=== PATIENT | female | born 1995 | race Caucasian/White ===

== ENCOUNTER 2016-08-27 02:45 | Observation (INO) | payer OTHER ==
[~2016-08-27 02:45] MED LIST: FERR325E14; IBUP-2213 PO; PREN-385 PO
--- NOTE | 2016-08-27 07:48 | NUR ---
PATIENT HAS BEEN SCREENED AND CATEGORIZED LOW NUTRITION RISK. PATIENT WILL BE SEEN WITHIN 7 DAYS OF ADMISSION. 09/02/[address]
== END 2016-08-27 04:45 | disposition home or self-care (01) ==
LOC: MLD 02:45
PROVIDERS: ADMIT Obstetrics & Gynecology; ATTEND Obstetrics & Gynecology
DX: O26.899 Other specified pregnancy related conditions, unspecified trimester (principal); R10.2 Pelvic and perineal pain; Z3A.00 Weeks of gestation of pregnancy not specified
CPT/HCPCS: G0378

== ENCOUNTER 2016-12-05 22:14 | Inpatient (IN) | payer OTHER ==
[~2016-12-05] VITALS: Ht 149.9 cm; Wt 55.8 kg
--- NOTE | 2016-12-05 01:45 | NUR ---
IV FLUID OF NS AT 60 ML PER HOUR INFUSING WELL
[2016-12-05 22:26] VITALS: BP 114/60
--- NOTE | 2016-12-05 22:41 | NUR ---
PT TAKEN TO BED 4
--- NOTE | 2016-12-05 22:46 | NUR ---
PATIENT PRESENTS TO ED WITH C/O FEVER, FOR 2 DAYS, CHILLS, LOWER ABD PAIN,BODYACHES POST = 9.17.17. SHE TOOK IBUPROFEN AT 2000HOURS. PT DENIES N/V/D; SKIN IS PINK/WARM/DRY; AAOX4 WITH EVEN AND STEADY GAIT; LUNGS CLEAR BL; HR EVEN AND REGULAR; PT DENIES ANY CP, SOB, OR COUGH AT THIS TIME; PATIENT STATES PAIN OF 7/10 AT THIS TIME; VSS; PATIENT POSITIONED FOR COMFORT; HOB ELEVATED; BEDRAILS UP X2; BED DOWN. ER MD MADE AWARE OF PT STATUS.
--- NOTE | 2016-12-05 22:47 | NUR ---
Dr. Dewitt evaluating patient at bedside.
--- NOTE | 2016-12-05 22:59 | NUR ---
PT REFUSING TO GIVE A UA. SHE STS " I WILL TALK TO THE ER MD ABOUT IT FRIST."
--- NOTE | 2016-12-05 22:59 | NUR ---
Note emma in EDM - 12/05/16 at 2300 by MEDRJJ PT REFUSING TO GIVE A UA. SHE STS " I WILL TALK TO THE ER ABOUT IT FRIST."
[2016-12-05 23:28] LABS: HEMATOCRIT 33.8 % (36-48); HEMOGLOBIN 11.4 g/dL (12.0-16.0); MEAN CORPUSCULAR HEMOGLOBIN 29 pg (27-31); MEAN CORPUSCULAR HGB CONC 34 g/dL (33-37); MEAN CORPUSCULAR VOLUME 86 fL (80-94); PLATELET COUNT (AUTO) 363 K/uL (140-450); RED BLOOD CELL COUNT(AUTO) 3.95 MIL/uL (4.20-5.40); RED CELL DISTRIBUTION WIDTH 11.6 % (11.6-13.7); WHITE BLOOD COUNT (AUTO) 12.8 K/uL (4.8-10.8)
[2016-12-05 23:37] LABS: ANION GAP 13.7 (8-16); CARBON DIOXIDE 21.9 mmol/L (21-32); CREATININE 0.8 mg/dL (0.6-1.3); POTASSIUM 3.6 mmol/L (3.5-5.1)
[2016-12-05 23:44] LABS: TOTAL BILIRUBIN 0.2 mg/dL (0.0-1.0)
[2016-12-05 23:50] LABS: LYMPHOCYTES % (MANUAL) 8 % (20-46); MONOCYTES % (MANUAL) 7 % (5-12)
[2016-12-06 00:06] LABS: APPEARANCE,URINE SL CLOUDY (CLEAR); BILIRUBIN,URINE NEGATIVE (NEGATIVE); BLOOD, URINE TRACE-L (NEGATIVE); COLOR,URINE YELLOW (YELLOW); LEUKOCYTE ESTERASE ,URINE 3+ (NEGATIVE); NITRITE, URINE NEGATIVE (NEGATIVE); UGLUCOSE NEGATIVE (NEGATIVE)
[2016-12-06 00:18] LABS: RBC,URINE 0-5 (RARE) /HPF (0-5); WBC,URINE TOO MANY TO COUNT /HPF (0-5)
[2016-12-06] MEDS ORDERED: GENTAMICIN 80 MG in DEXTROSE 5% 100 ML IV ONE (00:45)
[2016-12-06] MEDS ORDERED: CLINDAMYCIN 900 MG in DEXTROSE 5% 100 ML IV ONE (00:45)
[2016-12-06] MEDS: NACL 0.9% 1,000 ML IV SCH ×2 (00:59→17:40)
[2016-12-06] MEDS ORDERED: ONDANSETRON 4 MG/2 ML VIAL IM/IVP PRN (01:00)
[2016-12-06] MEDS ORDERED: MORPHINE SULFATE 2 MG/ML SYR IVP PRN (01:00)
[2016-12-06] MEDS ORDERED: HYDROcodone/APAP 7.5/325 MG 1 TAB PO PRN (01:00)
[2016-12-06] MEDS ORDERED: DOCUSATE SODIUM 100 MG GELCAP PO PRN (01:00)
[2016-12-06] MEDS ORDERED: GENTAMICIN 80 MG/2 ML VIAL ONE (01:11)
[2016-12-06] MEDS ORDERED: CLINDAMYCIN 900 MG/6 ML VIAL IV ONE (01:12)
--- NOTE | 2016-12-06 01:40 | NUR ---
Patient will be admitted to care of Dr Stafford. Admited to tele. Will go to room 116. Belongings list completed. Report to STEF Chun.
--- NOTE | 2016-12-06 01:45 | NUR ---
PT ARRIVED ON UNIT VIA GURNEY FROM ER, PT IS AAOX4, PT IS ON RA. PT HAS IV TO L HAND 20 G, INFUSING WELL, PATENT AND INTACT. SKIN IS INTACT, RESPIRATIONS ARE EVEN AND UNLABORED. BOWEL SOUNDS ARE PRESENT. INITIAL ASSESSMENT COMPLETED, PLAN OF CARE DISCUSSED DISCUSSED WITH PT, PT VERBALIZED UNDERSTANDING. ALL SAFETY PRECAUTIONS MET, CALL LIGHT WITHIN REACH, WILL CONTINUE TO MONITOR.
[2016-12-06 01:47] LABS: PROTHROMBIN TIME 11.5 secs (10.8-13.4)
[2016-12-06 01:49] LABS: CHOL/HDL RATIO 2.2 (1-4.5); FREE T4 (FREE THYROXINE) 1.19 ng/dL (0.76-1.46); MAGNESIUM 1.8 mg/dL (1.8-2.4); THYROID STIMULATING HORMONE 0.18 uIU/mL (0.34-3.74)
[2016-12-06 02:16] VITALS: BP 119/63
[2016-12-06] MEDS ORDERED: GENTAMICIN PER PHARMACY MC PRN (02:30)
[2016-12-06] MEDS ORDERED: KETOROLAC 15 MG/ML VIAL IVP PRN (03:35)
[2016-12-06] MEDS: CLINDAMYCIN 900 MG in DEXTROSE 5% 100 ML IV SCH ×3 (04:57→20:48)
[2016-12-06] MEDS ORDERED: GENTAMICIN 80 MG in DEXTROSE 5% 100 ML IV SCH (05:00)
[2016-12-06 06:18] LABS: BASOPHILS # (AUTO) 0.1 K/uL (0.00-0.22); BASOPHILS % (AUTO) 0.5 % (0.0-2.0); EOSINOPHILS # (AUTO) 0.1 K/uL (0-0.4); EOSINOPHILS % (AUTO) 0.9 % (0.0-4.0); HEMATOCRIT 35.1 % (36-48); LYMPHOCYTES # (AUTO) 0.9 K/uL (2.5-16.5); LYMPHOCYTES % (AUTO) 7.5 % (20.5-51.1); MEAN CORPUSCULAR HEMOGLOBIN 29 pg (27-31); MEAN CORPUSCULAR HGB CONC 34 g/dL (33-37); MEAN CORPUSCULAR VOLUME 84 fL (80-94); MONOCYTES # (AUTO) 0.9 K/uL (0.8-1.0); MONOCYTES % (AUTO) 7.4 % (1.7-9.3); NEUTROPHILS # (AUTO) 10.1 K/uL (1.8-7.7); NEUTROPHILS % (AUTO) 83.7 % (42.2-75.2); PLATELET COUNT (AUTO) 322 K/uL (140-450); RED BLOOD CELL COUNT(AUTO) 4.17 MIL/uL (4.20-5.40); RED CELL DISTRIBUTION WIDTH 11.7 % (11.6-13.7)
[2016-12-06 06:39] LABS: ANION GAP 12.7 (8-16); CARBON DIOXIDE 23.3 mmol/L (21-32); CREATININE 0.7 mg/dL (0.6-1.3)
[2016-12-06 07:29] LABS: WHITE BLOOD COUNT (AUTO) 12.1 K/uL (4.8-10.8)
--- NOTE | 2016-12-06 07:40 | NUR ---
endorsed plan of care to day nurse for continuity of care, pt in stable condition no s/s of distress noted.
--- NOTE | 2016-12-06 07:45 | NUR ---
RECEIVED REPORT FROM HOUSEKEEPING LEAD NURSE, PT IS A/OX4, AMBULATORY, IV IS ON THE LEFT HAND, PATIENT, INTACT, FLUSHING WELL, NO S/S OF RESPIRATORY DISTRESS OR DISCOMFORT NOTED, DISCUSSED PLAN OF CARE WITH PT, PT VERBALIZED UNDERSTANDING, SAFETY/FALL PRECAUTIONS ARE IN PLACE, CALL LIGHT WITHIN REACH, WILL CONTINUE TO MONITOR.
[2016-12-06 08:00] VITALS: BP 113/63
[2016-12-06] MEDS: GENTAMICIN 80 MG in DEXTROSE 5% 100 ML IV SCH ×2 (09:23→17:40)
[2016-12-06] MEDS: LACTOBACILLUS RHAMNOSUS GG 1 EACH CAP PO SCH (09:24)
--- NOTE | 2016-12-06 09:57 | NUR ---
PATIENT HAS BEEN SCREENED AND CATEGORIZED HIGH NUTRITION RISK. PATIENT WILL BE SEEN WITHIN 1-2 DAYS OF ADMISSION. 12/06/16-12/07/[address]
--- NOTE | 2016-12-06 10:35 | NUR ---
PROVIDED PATIENT WITH BOTTLES FOR BREAST MILK STORAGE FROM NURSERY.
--- NOTE | 2016-12-06 11:00 | NUR ---
PT IS RESTING IN BED, PATIENT'S BOYFRIEND IS AT BEDSIDE, CALL LIGHT WITHIN REACH.
[2016-12-06 12:00] VITALS: BP 118/70
[2016-12-06] MEDS: ACETAMINOPHEN 325 MG TAB PO PRN ×2 (12:22→20:53)
--- NOTE | 2016-12-06 12:22 | NUR ---
PATIENT'S TEMPERATURE IS 102.2 AT THIS TIME, WILL MEDICATE WITH TYLENOL FOR FEVER AND PROVIDE COOLING MEASURES.
--- NOTE | 2016-12-06 12:38 | NUR ---
12/06/16 RD INITIAL ASSESSMENT COMPLETED PLEASE REFER TO NUTRITION ASSESSMENT UNDER CARE ACTIVITY FOR ESTIMATED NUTRITIONAL NEEDS. 1. CONTINUE REGULAR DIET 2. RD TO FOLLOW-UP 3-5 DAYS, HIGH RISK ION SEGOVIA RD
--- NOTE | 2016-12-06 13:30 | NUR ---
RECHECK PATIENT'S TEMPERATURE, CURRENT TEMP. 98.8.
[2016-12-06 16:00] VITALS: BP 117/72
--- NOTE | 2016-12-06 18:00 | NUR ---
PT IS RESTING IN BED WATCHING TV, NO S/S OF RESPIRATORY DISTRESS OR DISCOMFORT NOTED, CALL LIGHT WITHIN REACH.
--- NOTE | 2016-12-06 19:31 | NUR ---
ENDORSED PT TO MANAGER EDUCATION NURSE FOR CONTINUITY OF CARE, PT STABLE AT THIS TIME.
--- NOTE | 2016-12-06 19:32 | NUR ---
RECEIVED REPORT FROM AM NURSE. PT IS AOX4, ABLE TO MAKE NEEDS KNOWN. WITH RESPIRATIONS CLEAR AND UNLABORED, NO COMPLAINTS OF PAIN AT THIS TIME. WITH A LEFT HAND 20 G, INTACT AND PATENT. NOTED WITH A SCAR NOTED. WILL CONTINUE TO MONITOR. REORIENTED PT TO THE UNIT, VERBALIZED UNDERSTANDING. WILL CONTINUE TO MONITOR FOR ANY CHANGES.
--- NOTE | 2016-12-06 19:51 | NUR ---
ENDORSED TO ANOTHER MACHINE OPERATOR CANE CUTTER FOR CONTINUITY OF CARE, IN STABLE CONDITION.
--- NOTE | 2016-12-06 19:52 | NUR ---
RECEIVED PATIENT REPORT AT BEDSIDE FROM NIGHT NURSE ASHIA. PATIENT IS AWAKE, ALERT, AND ORIENTED. NO SIGNS AND SYMPTOMS OF DISTRESS NOTED. NO COMPLAINTS OF PAIN AT THIS TIME. IV SITE NOTED ON LEFT, HAND. IVF INFUSING WELL. BED IN LOWEST POSITION, SIDE RAILS UP AND CALL LIGHT WITHIN REACH. WILL CONTINUE TO MONITOR.
[2016-12-07] VITALS: BP 108/65
[2016-12-07] MEDS: GENTAMICIN 80 MG in DEXTROSE 5% 100 ML IV SCH ×2 (00:52→09:07)
--- NOTE | 2016-12-07 00:59 | NUR ---
CHECKED ON PATIENT, PATIENT IS ASLEEP. NO SIGNS AND SYMPTOMS OF DISTRESS NOTED.
[2016-12-07 04:00] VITALS: BP 100/59
[2016-12-07] MEDS: CLINDAMYCIN 900 MG in DEXTROSE 5% 100 ML IV SCH ×2 (04:05→12:37)
--- NOTE | 2016-12-07 07:25 | NUR ---
PATIENT REPORT GIVEN AT BEDSIDE TO MORNING NURSE. PATIENT IS IN STABLE CONDITION.
--- NOTE | 2016-12-07 07:25 | NUR ---
RECEIVED REPORT FROM DIRECTOR OF FUNDRAISING, PT IS AAOX4, ON ROOM AIR, IV TO LEFT HAND 20G INFUSING WELL, SKIN INTACT, INITIAL ASSESSMENT COMPLETED, REVIEWED PLAN OF CARE WITH PT, PT VERBALIZED UNDERSTANDING, ALL SAFETY PRECAUTIONS MET, CALL LIGHT WITHIN REACH. WILL CONTINUE TO MONITOR.
[2016-12-07 08:00] VITALS: BP 109/68
[2016-12-07 08:18] LABS: T4 (THYROXINE) 9.2 ug/dL (4.5-12.0)
[2016-12-07] MEDS: LACTOBACILLUS RHAMNOSUS GG 1 EACH CAP PO SCH (09:08)
--- NOTE | 2016-12-07 09:13 | NUR ---
MEDICATION GIVEN, PT TOLERATED WELL, RESTING IN BED WATCHING TV. NO SIGN AND SYMPTOMS OF DISTRESS. ALL NEEDS MET. WILL CONTINUE TO MONITOR.
--- NOTE | 2016-12-07 11:25 | NUR ---
PT RESTING ON HER PHONE, NO DISTRESS NOTED, CALL LIGHT WITHIN REACH, WILL CONTINUE TO MONITOR.
[2016-12-07] MEDS: NACL 0.9% 1,000 ML IV SCH (12:42)
--- NOTE | 2016-12-07 12:50 | NUR ---
DUE MEDICATION GIVEN, PT RESTING, EATING LUNCH, NO DISTRESS NOTED, CALL LIGHT WITHIN REACH. WILL CONTINUE TO MONITOR.
[2016-12-07] MEDS ORDERED: LACT10CA1 PO (13:31)
[2016-12-07] MEDS ORDERED: AMOX-999 PO (13:31)
--- NOTE | 2016-12-07 13:40 | NUR ---
DISCUSSED DISCHARGE PLANNING WITH PT, PT VERBALIZED UNDERSTANDING.
--- NOTE | 2016-12-07 15:12 | NUR ---
ALL DISCHARGE PAPER WERE SIGNED. D/C EDUCATION GIVEN, PT STATED UNDERSTANDING. FOLLOW UP INFORMATION GIVEN, MEDICATION EDUCATION GIVEN, IV REMOVED, TIP INTACT, ALL PERSONAL BELONGING WITH PT. SIGNIFICANT OTHER ACCOMPANIED PT.
--- NOTE | 2016-12-07 15:17 | NUR ---
PT WALKED TO THE LOBBY, STABLE CONDITION WITH SIGNIFICANT OTHER.
== END 2016-12-07 15:18 | disposition home or self-care (01) | DRG 561 ==
LOC: MED 22:14 → MTU 12-06 01:16 → OBSVTOIN 12-06 19:30
PROVIDERS: ADMIT Family Medicine Sports Medicine; ATTEND Family Medicine Sports Medicine
DX: O85 Puerperal sepsis (principal); N17.0 Acute kidney failure with tubular necrosis; O99.285 Endocrine, nutritional and metabolic diseases complicating the puerperium; O90.81 Anemia of the puerperium; O99.53 Diseases of the respiratory system complicating the puerperium; J45.909 Unspecified asthma, uncomplicated; O90.89 Other complications of the puerperium, not elsewhere classified; E02 Subclinical iodine-deficiency hypothyroidism; O25.3 Malnutrition in the puerperium; Z68.24 Body mass index [BMI] 24.0-24.9, adult; Z79.899 Other long term (current) drug therapy
CPT/HCPCS: 96365; 99285; G0378; 36415; 76856; 80048; 80053; 80170; 81001; 82150; 83036; 83605; 83735; 84100; 84436; 84439; 84443; 84479; 85025; 85610; 85730; 87040; 87081; 87086; J0696; J1580; J3490; J7030; J7060; Q0092

== ENCOUNTER 2018-01-05 11:35 | Emergency (ER) | payer OTHER ==
[~2018-01-05] VITALS: Ht 147.3 cm; Wt 54.0 kg
[~2018-01-05 11:35] MED LIST changes: +AMOX-999 PO; +LACT10CA1 PO
[2018-01-05 11:44] VITALS: BP 124/68
--- NOTE | 2018-01-05 11:50 | NUR ---
PT. CAME INTO THE ED C/O SORE THROAT FOR 2 MONTHS AND CONGESTION X 2WEEKS. PT HAS PRODUCTIVE COUGH . LS: CLEAR THROUGHOUT. DENIES FEVER OR CHILLS. RR EVEN AND UNLABORED. O2 SAT: 98 % VIA RA. PT ABLE TO SPEAK IN FULL AND COMPLETE SENTENCES. PT. STATES " MY CHEST GETS TIGHT WHEN I EXERCISE AND I COUGH MORE". PT DENIES N/V/D. ER MD MADE AWARE. WILL CONTINUE TO MONITOR. SAFETY PRECAUTIONS IMPLEMENTED.
--- NOTE | 2018-01-05 11:51 | NUR ---
PATIENT AMBULATED TO BED 2 AT THIS TIME.
--- NOTE | 2018-01-05 11:55 | NUR ---
DR. DANIEL AT BEDSIDE,EVALUATING PATIENT AT THIS TIME.
[2018-01-05 12:27] VITALS: BP 123/67
--- NOTE | 2018-01-05 12:27 | NUR ---
Patient discharged with v/s stable. Written and verbal after care instructions given and explained. Patient alert, oriented and verbalized understanding of instructions. Ambulatory with steady gait. All questions addressed prior to discharge. ID band removed. Patient advised to follow up with PMD. Rx of prednisone and motrin given. Patient educated on indication of medication including possible reaction and side effects. Opportunity to ask questions provided and answered.
== END 2018-01-05 12:27 | disposition home or self-care (01) ==
LOC: MED 11:35
DX: J02.9 Acute pharyngitis, unspecified (principal); J45.909 Unspecified asthma, uncomplicated; Z79.1 Long term (current) use of non-steroidal anti-inflammatories (NSAID); Z79.899 Other long term (current) drug therapy
CPT/HCPCS: 99283

== ENCOUNTER 2021-07-11 11:54 | Emergency (ER) | payer OTHER ==
[~2021-07-11] VITALS: Ht 149.9 cm; Wt 68.5 kg
[2021-07-11 12:13] VITALS: BP 129/89
[2021-07-11 14:29] VITALS: BP 110/67
--- NOTE | 2021-07-11 14:29 | NUR ---
Patient discharged with v/s stable. Written and verbal after care instructions ABOUT HEADACHE RECORD, TENSION HEADACHE given and explained. Patient verbalized understanding. Ambulatory with steady gait. All questions addressed prior to discharge. Advised to follow up with PMD.
== END 2021-07-11 14:29 | disposition home or self-care (01) ==
LOC: MED 11:54
DX: H11.001 Unspecified pterygium of right eye (principal); R03.0 Elevated blood-pressure reading, without diagnosis of hypertension; J45.909 Unspecified asthma, uncomplicated; Z79.899 Other long term (current) drug therapy
CPT/HCPCS: 81002; 81025; 99282